=== PATIENT | male | born 1985 | race Caucasian/White ===

== ENCOUNTER 2019-01-08 18:27 | Emergency (ER) | payer MEDICAID ==
[~2019-01-08] VITALS: Ht 182.9 cm; Wt 83.0 kg
--- NOTE | 2019-01-08 19:00 | NUR ---
pt resting on cart, denies needs at this time. blood sent to lab. updated on anticipated wait times.
[2019-01-08 19:05] LABS: BILIRUBIN,URINE NEGATIVE (NEGATIVE); CLARITY,URINE SLIGHTLY CLOUDY; COLOR,URINE YELLOW; GLUCOSE, URINE (UA) NEGATIVE (NEGATIVE); KETONES,URINE NEGATIVE (NEGATIVE); LEUKOCYTE ESTERASE ,URINE NEGATIVE (NEGATIVE); NITRITE,URINE NEGATIVE (NEGATIVE); PH,URINE 7 (5-9); PROTEIN,URINE NEGATIVE (NEGATIVE); UROBILINOGEN,URINE NORMAL (NORMAL)
--- NOTE | 2019-01-08 19:07 | ED General ---
General Chief Complaint: General Problems/Pain Stated Complaint: SHAKY/WEAKNESS Nursing Triage Note: PT AMB TO TRIAGE WITH COMPLAINT OF SHAKINESS AND LEG WEAKENESS. PT STATES STARTED A LITTLE WHILE AGO WHILE HE WAS EATING DINNER AT THE [employer] Nursing Sepsis Screen: No Definite Risk Source of Information: Patient Exam Limitations: No Limitations History of Present Illness Date Seen by Provider: January 08, 2019 Time Seen by Provider: 19:05 Initial Comments To ER by private vehicle with reports of sudden onset shakiness, leg weakness, general weakness. This started about an hour ago while his family were eating dinner at [employer]. He denies any chest pain or shortness of breath. Does state that he has a slight headache on the right side of his head. He's never had this before. Timing/Duration: 1-2 Days Severity: Moderate Associated Systoms: Weakness Allergies and Home Medications Allergies Coded Allergies: Penicillins (Verified Allergy, Unknown, 01/08/19) Patient Home Medication List Home Medication List Reviewed: Yes Review of Systems Review of Systems Constitutional: see HPI EENTM: see HPI Respiratory: no symptoms reported Cardiovascular: no symptoms reported Genitourinary: no symptoms reported Musculoskeletal: see HPI, muscle weakness Skin: no symptoms reported Psychiatric/Neurological: No Symptoms Reported Hematologic/Lymphatic: No Symptoms Reported Immunological/Allergic: no symptoms reported Past Blismmt-Roguky-Tshbph Hx Patient Social History Alcohol Use: Denies Use Recreational Drug Use: No Smoking Status: Former Smoker Type Used: Cigarettes, Smokeless Tobacco Recent Foreign Travel: No Contact w/Someone Who Travel: No Recent Infectious Disease Expo: No Recent Hopitalizations: No Immunizations Up To Date Tetanus Booster (TDap): Unknown PED Vaccines UTD: Yes Seasonal Allergies Seasonal Allergies: No Past Medical History Surgeries: Yes Orthopedic Respiratory: No Cardiac: No Neurological: No Genitourinary: No Gastrointestinal: No Musculoskeletal: No Endocrine: No HEENT: No Cancer: No Psychosocial: Yes Integumentary: No Physical Exam Vital Signs Vital Signs - First Documented 01/08/19 18:33 Pulse 89 Resp 20 B/P (MAP) 151/90 (110) Pulse Ox 98 O2 Delivery Room Air Capillary Refill : Less Than 3 Seconds Height, Weight, BMI Height: 6'0" Weight: 183lbs. oz. 83.031779ge; BMI Method:Stated General Appearance: No Apparent Distress, WD/WN, Anxious Eyes: Bilateral Eye Normal Inspection, Bilateral Eye PERRL, Bilateral Eye EOMI HEENT: PERRL/EOMI, TMs Normal, Normal ENT Inspection Neck: Full Range of Motion, Normal Inspection Respiratory: Normal Breath Sounds, No Accessory Muscle Use, No Respiratory Distress Gastrointestinal: Normal Bowel Sounds, Non Tender, Soft Extremity: Normal Capillary Refill, Normal Inspection Neurologic/Psychiatric: Alert, Oriented x3 Skin: Normal Color, Warm/Dry Progress/Results/Core Measures Suspected Sepsis Recent Fever Within 48 Hours: No Infection Criteria Present: None New/Unexplained Altered Menta: No Sepsis Screen: No Definite Risk SIRS Temperature: Pulse: 89 Respiratory Rate: 20 Laboratory Tests 01/08/19 19:00: White Blood Count 6.1 Blood Pressure 151 /90 Mean: 110 Laboratory Tests 01/08/19 19:00: Creatinine 1.01, Platelet Count 209, Total Bilirubin 0.3 Results/Orders Lab Results Laboratory Tests Test 01/08/19 18:55 01/08/19 19:00 Range/Units Urine Color YELLOW Urine Clarity SLIGHTLY CLOUDY Urine pH 7 5-9 Urine Specific [place] 1.005 L 1.016-1.022 Urine Protein NEGATIVE NEGATIVE Urine Glucose (UA) NEGATIVE NEGATIVE Urine Ketones NEGATIVE NEGATIVE Urine Nitrite NEGATIVE NEGATIVE Urine Bilirubin NEGATIVE NEGATIVE Urine Urobilinogen NORMAL NORMAL MG/DL Urine Leukocyte Esterase NEGATIVE NEGATIVE Urine RBC (Auto) NEGATIVE NEGATIVE Urine RBC RARE /HPF Urine WBC 0-2 /HPF Urine Crystals NONE /LPF Urine Bacteria NEGATIVE /HPF Urine Casts NONE /LPF Urine Mucus NEGATIVE /LPF Urine Culture Indicated NO Urine Opiates Screen NEGATIVE NEGATIVE Urine Oxycodone Screen NEGATIVE NEGATIVE Urine Methadone Screen NEGATIVE NEGATIVE Urine Propoxyphene Screen NEGATIVE NEGATIVE Urine Barbiturates Screen NEGATIVE NEGATIVE Ur Tricyclic Antidepressants Screen NEGATIVE NEGATIVE Urine Phencyclidine Screen NEGATIVE NEGATIVE Urine Amphetamines Screen NEGATIVE NEGATIVE Urine Methamphetamines Screen NEGATIVE NEGATIVE Urine Benzodiazepines Screen NEGATIVE NEGATIVE Urine Cocaine Screen NEGATIVE NEGATIVE Urine Cannabinoids Screen NEGATIVE NEGATIVE White Blood Count 6.1 4.3-11.0 10^3/uL Red Blood Count 5.43 4.35-5.85 10^6/uL Hemoglobin 16.2 13.3-17.7 G/DL Hematocrit 46 40-54 % Mean Corpuscular Volume 84 80-99 FL Mean Corpuscular Hemoglobin 30 25-34 PG Mean Corpuscular Hemoglobin Concent 35 32-36 G/DL Red Cell Distribution Width 13.0 10.0-14.5 % Platelet Count 209 130-400 10^3/uL Mean Platelet Volume 10.3 7.4-10.4 FL Neutrophils (%) (Auto) 49 42-75 % Lymphocytes (%) (Auto) 28 12-44 % Monocytes (%) (Auto) 22 H 0-12 % Eosinophils (%) (Auto) 2 0-10 % Basophils (%) (Auto) 0 0-10 % Neutrophils # (Auto) 3.0 1.8-7.8 X 10^3 Lymphocytes # (Auto) 1.7 1.0-4.0 X 10^3 Monocytes # (Auto) 1.3 H 0.0-1.0 X 10^3 Eosinophils # (Auto) 0.1 0.0-0.3 10^3/uL Basophils # (Auto) 0.0 0.0-0.1 10^3/uL Neutrophils % (Manual) 51 % Lymphocytes % (Manual) 30 % Monocytes % (Manual) 14 % Eosinophils % (Manual) 1 % Basophils % (Manual) 2 % Band Neutrophils 0 % Reactive Lymphocytes 2 % Blood Morphology Comment NORMAL Sodium Level 142 135-145 MMOL/L Potassium Level 3.7 3.6-5.0 MMOL/L Chloride Level 102 98-107 MMOL/L Carbon Dioxide Level 25 21-32 MMOL/L Anion Gap 15 H 5-14 MMOL/L Blood Urea Nitrogen 11 7-18 MG/DL Creatinine 1.01 0.60-1.30 MG/DL Estimat Glomerular Filtration Rate > 60 BUN/Creatinine Ratio 11 Glucose Level 109 H 70-105 MG/DL Calcium Level 10.5 H 8.5-10.1 MG/DL Corrected Calcium 8.5-10.1 MG/DL Total Bilirubin 0.3 0.1-1.0 MG/DL Aspartate Amino Transf (AST/SGOT) 25 5-34 U/L Alanine Aminotransferase (ALT/SGPT) 34 0-55 U/L Alkaline Phosphatase 77 40-136 U/L Total Creatine Kinase 210 H 30-200 U/L Myoglobin 70.0 10.0-92.0 NG/ML Total Protein 8.1 6.4-8.2 GM/DL Albumin 4.8 H 3.2-4.5 GM/DL Thyroid Stimulating Hormone (TSH) 0.64 0.35-4.94 UIU/ML Free Thyroxine 0.97 0.70-1.48 NG/DL My Orders Orders - DYLAN WHELAN APRN Cbc With Automated Diff (01/08/19 18:41) Comprehensive Metabolic Panel (01/08/19 18:41) Creatine Kinase (01/08/19 18:41) Myoglobin Serum (01/08/19 18:41) Ua Culture If Indicated (01/08/19 18:41) Drug Screen Stat (Urine) (01/08/19 18:41) Ed Iv/Invasive Line Start (01/08/19 18:41) Thyroid Stimulating Hormone (01/08/19 18:44) Free T4 (Free Thyroxine) (01/08/19 18:44) Lorazepam Injection (Ativan Injection) (01/08/19 19:15) Manual Differential (01/08/19 19:00) Medications Given in ED Current Medications Medications Dose Ordered Sig/Valentina Route Start Time Stop Time Status Last Admin Dose Admin Lorazepam 0.5 mg ONCE PRN IVP 01/08/19 19:15 01/08/19 19:10 0.5 MG Vital Signs/I&O 01/08/19 18:33 Pulse 89 Resp 20 B/P (MAP) 151/90 (110) Pulse Ox 98 O2 Delivery Room Air Capillary Refill : Less Than 3 Seconds Blood Pressure Mean: 110 Departure Impression Primary Impression: General weakness Additional Impression: Shakiness Disposition: 01 HOME, SELF-CARE Condition: Stable Departure-Patient Inst. Decision time for Depature: 20:08 Referrals: RAVINDRA PERRIN MD (PCP/Family) Primary Care Physician Patient Instructions: Generalized Weakness (DC) Add. Discharge Instructions: 1. Follow-up with your doctor later this week 2. Return to ER for any concerns. All discharge instructions reviewed with patient and/or family. Voiced understanding. DYLAN WHELAN APRN January 08, 2019 19:07
[2019-01-08 19:09] LABS: BASOPHILS % (AUTO) 0 % (0-10); EOSINOPHILS # (AUTO) 0.1 10^3/uL (0.0-0.3); EOSINOPHILS % (AUTO) 2 % (0-10); HEMATOCRIT 46 % (40-54); HEMOGLOBIN 16.2 G/DL (13.3-17.7); LYMPHOCYTES # (AUTO) 1.7 X 10^3 (1.0-4.0); LYMPHOCYTES % (AUTO) 28 % (12-44); MEAN CORPUSCULAR HEMOGLOBIN 30 PG (25-34); MEAN CORPUSCULAR HGB CONC 35 G/DL (32-36); MEAN CORPUSCULAR VOLUME 84 FL (80-99); MEAN PLATELET VOLUME 10.3 FL (7.4-10.4); MONOCYTES # (AUTO) 1.3 X 10^3 (0.0-1.0); MONOCYTES % (AUTO) 22 % (0-12); NEUTROPHILS % (AUTO) 49 % (42-75); PLATELET COUNT 209 10^3/uL (130-400); WHITE BLOOD COUNT 6.1 10^3/uL (4.3-11.0)
[2019-01-08 19:14] LABS: BACTERIA,URINE NEGATIVE /HPF; RBC,URINE RARE /HPF; WBC,URINE 0-2 /HPF
[2019-01-08] MEDS ORDERED: LORazepam INJ 2 MG/ML (ATIVAN) VIAL IVP PRN (19:15)
[2019-01-08 19:19] LABS: AMPHETAMINE SCREEN, URINE NEGATIVE (NEGATIVE); BARBITURATE SCREEN URINE NEGATIVE (NEGATIVE); BENZODIAZEPINES SCREEN URINE NEGATIVE (NEGATIVE); CANNABINOID SCREEN, URINE NEGATIVE (NEGATIVE); COCAINE SCREEN URINE NEGATIVE (NEGATIVE); METHADONE STAT NEGATIVE (NEGATIVE); METHAMPHETAMINE SCREEN URINE S NEGATIVE (NEGATIVE); OPIATE SCREEN URINE NEGATIVE (NEGATIVE); OXYCODONE STAT NEGATIVE (NEGATIVE); PROPOXYPHENE STAT NEGATIVE (NEGATIVE); TRICYCLIC ANTIDEPRESSANTS SCRE NEGATIVE (NEGATIVE)
[2019-01-08 19:27] LABS: BAND NEUTROPHILS 0 %; BASOPHILS % (MANUAL) 2 %; EOSINOPHILS % (MANUAL) 1 %; LYMPHOCYTES % (MANUAL) 30 %; MONOCYTES % (MANUAL) 14 %; NEUTROPHILS % (MANUAL) 51 %; REACTIVE LYMPHOCYTES 2 %
[2019-01-08 19:28] LABS: ALBUMIN 4.8 GM/DL (3.2-4.5); ALKALINE PHOSPHATASE 77 U/L (40-136); BILIRUBIN,TOTAL 0.3 MG/DL (0.1-1.0); BUN/CREATININE RATIO 11; CALCIUM 10.5 MG/DL (8.5-10.1); CARBON DIOXIDE 25 MMOL/L (21-32); CHLORIDE 102 MMOL/L (98-107); CREATINE KINASE 210 U/L (30-200); CREATININE SERUM 1.01 MG/DL (0.60-1.30); GFR ESTIMATED > 60; GLUCOSE 109 MG/DL (70-105); POTASSIUM 3.7 MMOL/L (3.6-5.0); RBC MORPH NORMAL; SODIUM 142 MMOL/L (135-145); TOTAL PROTEIN 8.1 GM/DL (6.4-8.2)
[2019-01-08 19:49] LABS: FREE T4 (FREE THYROXINE) 0.97 NG/DL (0.70-1.48)
[2019-01-08 20:02] LABS: ALANINE AMINOTRANSFERASE 34 U/L (0-55)
[2019-01-08 20:15] VITALS: BP 122/83
== END 2019-01-08 20:15 | disposition home or self-care (01) ==
LOC: EDUNIT# 18:27 → ER 18:28
DX: M62.81 Muscle weakness (generalized) (principal); R25.9 Unspecified abnormal involuntary movements; Z88.0 Allergy status to penicillin; Z87.891 Personal history of nicotine dependence
CPT/HCPCS: 36415; 80053; 80306; 81000; 82550; 83874; 84439; 84443; 85007; 85027

== ENCOUNTER → 2019-04-17 | Outpatient (CLI) | payer MEDICAID | LOC: CARD 11:23 | PROVIDERS: ATTEND Nurse Practitioner Family | DX: R07.9 Chest pain, unspecified (principal) | CPT/HCPCS: 93225; 93226 ==

== ENCOUNTER → 2019-04-24 | Outpatient (CLI) | payer MEDICAID ==
[~2019-04-24] MED LIST: CATHETER FLUSH 10 ML SYR IV PRN
[2019-04-24 13:32] VITALS: BP 103/71
[2019-04-24 13:54] VITALS: BP 123/75
[2019-04-24 13:56] VITALS: BP 120/76
--- NOTE | 2019-04-27 13:06 | STRESS TEST ---
DATE OF SERVICE: 04/24/2019 RESTING AND POST EXERCISE TECHNETIUM-99M TETROFOSMIN SPECT CT IMAGING Baseline images were carried out after injection of 10.7 mCi of technetium-99m Tetrofosmin. This was followed by exercise on a treadmill. Keon protocol was employed. The patient exercised for a total of 12 minutes and 12 seconds in the Keon protocol. Heart rate response to exercise was normal. Blood pressure response to exercise was somewhat hypertensive. There did not appear to be significant ST segment deviation with exercise. Test was stopped on account of fatigue. The patient received 30.5 mCi of technetium-99m Tetrofosmin after he had attained more than 85% of maximum predicted heart rate and the exercise was continued for another minute. Review of images at rest and following stress does not indicate significant perfusion defects consistent with significant myocardial ischemia or infarction. Gated images show normal global left ventricular systolic function with normal regional wall motion. Left ventricular ejection fraction is calculated to be 53%. Left ventricular end diastolic volume is 73 mL. TID is absent (0.99). CONCLUSIONS: 1. No evidence of any significant myocardial ischemia or infarction on this study. 2. Normal regional wall motion. 3. Normal global left ventricular systolic function with a calculated ejection fraction of 53%. Job ID: [id number] DocumentID: [id number] Dictated Date: 04/27/2019 10:18:51 Quarter Backer Date: 04/27/2019 13:05:41 Dictated By: JESSE TOLEDO MD, MA, FACP, FACC,
== END ==
LOC: CARD 11:52
PROVIDERS: ATTEND Internal Medicine Cardiovascular Disease
DX: I34.0 Nonrheumatic mitral (valve) insufficiency (principal)
CPT/HCPCS: 78452; 93017; 93306

== ENCOUNTER 2020-06-10 13:53 | Emergency (ER) | payer MEDICAID ==
[~2020-06-10] VITALS: Ht 182 cm; Wt 84.0 kg
--- NOTE | 2020-06-10 16:26 | ED EENT ---
History of Present Illness General Chief Complaint: Dental Problems/Pain Stated Complaint: MOUTH ABSCESS Nursing Triage Note: PT HAS RT LOWER DENTAL PAIN AND SWELLING, WAS GIVEN ABX YESTERDAY AND "MAGIC MOUTHWASH" BUT STILL IN A LOT OF PAIN. PAIN FOR A COUPLE DAYS Source: patient Exam Limitations: no limitations History of Present Illness Date Seen by Provider: Jun 10, 2020 Time Seen by Provider: 16:14 Initial Comments Pain swelling tenderness erythema on the right jaw associated with a bad tooth for the past 3-4 days. He started clindamycin yesterday from his doctor however is getting worse. No drainage or discharge in the mouth. No difficulty swallowing fluids or breathing. Allergies and Home Medications Allergies Coded Allergies: Penicillins (Verified Allergy, Unknown, 01/08/19) Patient Home Medication List Home Medication List Reviewed: Yes Review of Systems Review of Systems Constitutional: No chills, No diaphoresis Eyes: Denies Blindness, Denies Blurred Vision Ears: Denies Dizziness, Denies Pain Nose: denies congestion, denies pain Mouth: see HPI, pain, swelling Throat: denies pain, denies swelling Respiratory: No cough, No stridor, No wheezing All Other Systems Reviewed Negative Unless Noted: Yes Past Jmcuhhm-Ztgeaj-Mjlqip Hx Patient Social History Alcohol Use: Denies Use Recreational Drug Use: No Type Used: Cigarettes, Smokeless Tobacco Recent Foreign Travel: No Contact w/Someone Who Travel: No Recent Infectious Disease Expo: No Recent Hopitalizations: No Immunizations Up To Date Tetanus Booster (TDap): Unknown PED Vaccines UTD: Yes Seasonal Allergies Seasonal Allergies: No Past Medical History Surgeries: Yes (RT ARM) Orthopedic Respiratory: No Cardiac: Yes Valvular Heart Disease Neurological: No Genitourinary: No Gastrointestinal: No Musculoskeletal: No Endocrine: No HEENT: No Cancer: No Psychosocial: Yes Depression Integumentary: No Physical Exam Vital Signs Vital Signs - First Documented 06/10/20 16:11 Temp 37.2 Pulse 99 Resp 20 B/P (MAP) 173/100 (124) Pulse Ox 97 O2 Delivery Room Air Height, Weight, BMI Height: 6'0" Weight: 183lbs. oz. 83.219597na; 25.00 BMI Method:Stated General Appearance: WD/WN, mild distress Eyes: bilateral eye normal inspection, bilateral eye PERRL, bilateral eye EOMI Ears: bilateral ear auricle normal, bilateral ear canal normal Nose: normal inspection; No active bleeding Mouth/Throat: other (ball-sized tender nodule or mass without fluctuance associated with the right side mandibular molars.) Neck: full range of motion, supple Cardiovascular: normal peripheral pulses, regular rate, rhythm Neurologic/Psychiatric: alert, normal mood/affect, oriented x 3 Skin: normal color, warm/dry Procedures/Interventions Progress 3. They are using a 50/50 mixture of half percent bupivacaine and 2% lidocaine without epinephrine we found our landmarks and placed the 25-gauge 1-1/2 inch needle directly at the level of the alveolar nerve. Injected about 1-1/2 cc of the mixture after aspirating no blood and patient had immediate sensation change. When the patient was ascertained to be appropriately anesthetized 11 blade scalpel was used to rafita the mass which gained about 15 cc of sanguinous thin material. Progress/Results/Core Measures Results/Orders My Orders Orders - CELESTINO GARCIA Bupivacaine 0.5% Injection (Sensorcaine (06/10/20 16:30) Medications Given in ED Current Medications Medications Dose Ordered Sig/Valentina Route Start Time Stop Time Status Last Admin Dose Admin Bupivacaine HCl 30 ml ONCE ONCE INJ 06/10/20 16:30 06/10/20 16:31 DC 06/10/20 16:27 30 ML Vital Signs/I&O 06/10/20 06/10/20 16:11 16:27 Temp 37.2 37.2 Pulse 99 Resp 20 B/P (MAP) 173/100 (124) Pulse Ox 97 O2 Delivery Room Air Blood Pressure Mean: 124 Progress Progress Note : Time: 16:25 Progress Note Plan to do an inferior alveolar nerve block and Rafita the abscess. Gram of Rocephin Departure Impression Primary Impression: Dental abscess Disposition: HOME, SELF-CARE Condition: Stable Departure-Patient Inst. Decision time for Depature: 16:37 Referrals: RAVINDRA PERRIN MD (PCP/Family) Primary Care Physician Patient Instructions: Tooth Abscess (DC) Add. Discharge Instructions: Continue taking the antibiotics as prescribed. Follow-up with a dentist. Return to the ER should you have difficulty breathing or swallowing fluids. Tylenol 1000 mg every 8 hours as necessary for pain. Ibuprofen 800 mg every 8 hours as necessary for pain. All discharge instructions reviewed with patient and/or family. Voiced understanding. CELESTINO GARCIA Jun 10, 2020 16:26
[2020-06-10] MEDS ORDERED: BUPIVACAINE 0.5% 30 ML (SENSORCAINE) VIAL INJ ONE (16:30)
[2020-06-10] MEDS ORDERED: cefTRIAXone 1,000 MG/2.86 ml vial (IM ONLY) IM ONE (16:45)
[2020-06-10] MEDS ORDERED: LIDOCAINE 1% INJ 20 ML 20 ML VIAL INJ ONE (16:45)
[2020-06-10 17:33] VITALS: BP 154/92
== END 2020-06-10 17:33 | disposition home or self-care (01) ==
LOC: EDUNIT# 13:53 → ER 13:55
DX: K04.7 Periapical abscess without sinus (principal); Z88.0 Allergy status to penicillin
CPT/HCPCS: 99284

== ENCOUNTER 2021-09-26 17:21 | Emergency (ER) | payer MEDICAID ==
[~2021-09-26] VITALS: Ht 183 cm; Wt 86.6 kg
[2021-09-26 17:25] VITALS: BP 128/83
--- NOTE | 2021-09-26 17:36 | ED EENT ---
History of Present Illness General Stated Complaint: FEVER/BODYACHES/COUGH/SORE THROAT Source: patient Exam Limitations: no limitations History of Present Illness Date Seen by Provider: Sep 26, 2021 Time Seen by Provider: 17:33 Initial Comments Patient is a 36-year-old male who presents to the ED with flulike symptoms. Reports by aches, fatigue and generalized weakness since this previous Tuesday. Tested positive for strep on Tuesday with negative Covid. Patient was placed on azithromycin. Had initial sore throat but that has improved. Continue bodyaches, fatigue feeling feverish with joint pain. Exposure to his family member who tested positive. Currently on atenolol. History of abnormal heart valve. Patient denies any current chest pain feeling short of breath. Vital signs stable. Denies taking any anti-inflammatories at home. Denies headache, visual changes, focal neuro deficit, lower abdominal pain with dysuria, materia. Patient has not had his Covid vaccine. Allergies and Home Medications Allergies Coded Allergies: Penicillins (Verified Allergy, Unknown, 01/08/19) Patient Home Medication List Home Medication List Reviewed: Yes Review of Systems Review of Systems Constitutional: chills, fever, malaise, weakness Eyes: Denies Blindness, Denies Blurred Vision, Denies Pain Ears: Denies Dizziness, Denies Bloody Discharge Nose: denies clots; congestion; denies epistaxis Mouth: denies clots, denies loose teeth; pain; denies swelling Throat: pain; denies swelling, denies discharge, denies neck stiffness, denies hoarse, denies muffled Respiratory: cough; No phlegm, No short of breath Cardiovascular: No chest pain Gastrointestinal: No abdominal pain, No diarrhea, No dysphagia, No nausea, No vomiting Musculoskeletal: No back pain; joint pain Skin: No change in color, No change in hair/nails All Other Systems Reviewed Negative Unless Noted: Yes Past Jxhcmxo-Qcyavs-Pejjjo Hx Immunizations Up To Date Tetanus Booster (TDap): Unknown PED Vaccines UTD: Yes Seasonal Allergies Seasonal Allergies: No Past Medical History Surgeries: Yes (RT ARM) Orthopedic Respiratory: No Cardiac: Yes Valvular Heart Disease Neurological: No Genitourinary: No Gastrointestinal: No Musculoskeletal: No Endocrine: No HEENT: No Cancer: No Psychosocial: Yes Depression Integumentary: No Physical Exam Vital Signs Vital Signs - First Documented 09/26/21 17:25 Temp 37.9 Pulse 100 Resp 20 B/P (MAP) 128/83 (98) O2 Delivery Room Air Height, Weight, BMI Height: 6'0" Weight: 183lbs. oz. 83.524846ss; 25.00 BMI Method:Stated General Appearance: WD/WN, no apparent distress Eyes: bilateral eye normal inspection, bilateral eye PERRL, bilateral eye EOMI Ears: bilateral ear auricle normal, bilateral ear canal normal, bilateral ear TM normal Nose: normal inspection Mouth/Throat: normal mouth inspection; No pharynx swelling, No pharynx tenderness, No tonsillar swelling, No uvula swelling Neck: non-tender, full range of motion Cardiovascular: regular rate, rhythm, no edema, no gallop, no JVD Respiratory: chest non-tender, lungs clear, normal breath sounds, no respiratory distress, no accessory muscle use Gastrointestinal: normal bowel sounds, non tender, soft, no organomegaly Neurologic/Psychiatric: transit mechanic II-XII nml as tested, no motor/sensory deficits, alert, normal mood/affect, oriented x 3 Skin: normal color, warm/dry Progress/Results/Core Measures Results/Orders Lab Results Laboratory Tests Test 09/26/21 17:29 Range/Units Influenza Type A Antigen NEGATIVE NEGATIVE Influenza Type B Antigen NEGATIVE NEGATIVE My Orders Orders - MAGDALENA KYLE Coronavirus Sars-Cov-2 So 2019 (09/26/21 17:37) Influenza A & B Antigens (09/26/21 17:29) Vital Signs/I&O 09/26/21 17:25 Temp 37.9 Pulse 100 Resp 20 B/P (MAP) 128/83 (98) O2 Delivery Room Air Departure Communication (Admissions) Patient recently recovering from strep throat. Positive throat swab on Tuesday. Continue flulike symptoms of bodyaches, fatigue and generalized weakness. Sore throat has improved. Patient lung sounds clear bilateral. No abdominal tenderness. Oropharynx without swelling, exudate. Nasal mucosal edematous. Bilateral TMs clear. Slightly tachycardic. Concerning with flulike symptoms. No current chest pain or shortness of breath. Mild cough. Lung sounds clear bilateral. Covid and influenza pending. Quarantine at home until results. Provided work note if positive. Discussed conservative treatment at home. If any worsening symptoms return back to ED for further evaluation. Offered Tylenol or ibuprofen. Patient refused. Low-grade temperature 100.2. He states he will take medication when he gets home. Impression Primary Impression: Viral syndrome Disposition: HOME, SELF-CARE Condition: Stable Departure-Patient Inst. Decision time for Depature: 17:35 Referrals: RAVINDRA PERRIN MD (PCP/Family) Primary Care Physician Patient Instructions: Viral Syndrome (DC) Add. Discharge Instructions: Need to take ibuprofen 600 to 800 mg every 6-8 hours at home. Quarantine at home if positive until next Tuesday. Work/School Note: Work Release Form Date Seen in the Emergency Department: Sep 26, 2021 Return to Work: Oct 02, 2021 MAGDALENA KYLE Sep 26, 2021 17:36
== END 2021-09-26 17:58 | disposition home or self-care (01) ==
LOC: EDUNIT# 17:21 → ER 17:22
DX: U07.1 COVID-19 (principal)
CPT/HCPCS: 87635; 87804; 99283

== ENCOUNTER 2021-09-28 13:28 | Emergency (ER) | payer MEDICAID ==
[~2021-09-28] VITALS: Ht 183 cm; Wt 86.6 kg
[2021-09-28 13:45] VITALS: BP 118/71
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
[2021-09-28] MEDS ORDERED: HYDROcodone/APAP 5 MG/325 MG (LORTAB) TAB PO ONE (14:00)
[2021-09-28] MEDS ORDERED: IBUPROFEN 600 MG (MOTRIN) TAB PO ONE (14:00)
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
--- NOTE | 2021-09-28 14:33 | Diagnostic Imaging Report ---
INDICATION: Left lower leg pain AP and lateral views of the left tibia-fibula show no fracture, dislocation or other acute abnormalities. IMPRESSION: Negative left tibia and fibula. Dictated by: Dictated on workstation # [id number]
== END 2021-09-28 14:43 | disposition home or self-care (01) ==
LOC: EDUNIT# 13:28 → ER 13:34
DX: S91.012A Laceration without foreign body, left ankle, initial encounter (principal); M79.672 Pain in left foot; U07.1 COVID-19; F17.210 Nicotine dependence, cigarettes, uncomplicated; Z73.0 Burn-out; V13.2XXA Unspecified pedal cyclist injured in collision with car, pick-up truck or van in nontraffic accident, initial encounter
CPT/HCPCS: 73590; 73630

== ENCOUNTER 2021-11-28 18:11 | Emergency (ER) | payer MEDICAID ==
[~2021-11-28] VITALS: Ht 182.8 cm; Wt 86.6 kg
[2021-11-28] MEDS ORDERED: IBUPROFEN 800 MG (MOTRIN) TAB PO STA (18:33)
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
[2021-11-28 19:21] VITALS: BP 119/80
== END 2021-11-28 19:22 | disposition home or self-care (01) ==
LOC: EDUNIT# 18:11 → ER 18:12
DX: S83.411A Sprain of medial collateral ligament of right knee, initial encounter (principal); F17.210 Nicotine dependence, cigarettes, uncomplicated; W22.8XXA Striking against or struck by other objects, initial encounter; Y93.72 Activity, wrestling
CPT/HCPCS: 73562

== ENCOUNTER → 2021-12-21 | Outpatient (CLI) | payer MEDICAID | LOC: CARD 13:30 | PROVIDERS: ATTEND Internal Medicine Cardiovascular Disease | DX: R00.2 Palpitations (principal); R06.09 Other forms of dyspnea | CPT/HCPCS: 93306 ==

== ENCOUNTER → 2021-12-22 | Outpatient (CLI) | payer MEDICAID ==
[~2021-12-22] MED LIST changes: -CATHETER FLUSH 10 ML SYR IV PRN; +CATHETER FLUSH 10 ML SYR IVP PRN; +REGADENOSON 0.4 MG/5 ML SYR (LEXISCAN) IV ONE
[2021-12-22 09:19] VITALS: BP 111/72
--- NOTE | 2021-12-23 13:33 | STRESS TEST ---
DATE OF SERVICE: 12/22/2021 RESTING AND POST REGADENOSON TECHNETIUM-99M TETROFOSMIN SPECT CT IMAGING ORDERING PHYSICIAN: Dr. Wagner. PRIMARY PHYSICIAN: Dr. Alonzo. CLINICAL DIAGNOSIS: Chest discomfort. Baseline images were carried out after injection of 9.11 mCi of technetium-99m Tetrofosmin. This was followed by 0.4 mg Regadenoson and 29.1 mCi of technetium-99m Tetrofosmin for stress imaging. The electrocardiogram showed sinus rhythm at baseline and it did not change significantly with the Regadenoson infusion. The patient noted mild chest discomfort following Regadenoson infusion, which resolved in a few minutes. Review of images at rest and following stress does not indicate any significant perfusion defects consistent with myocardial ischemia or infarction. Gated images show normal global left ventricular systolic function with normal regional wall motion. Left ventricular ejection fraction is calculated to be 58%. CONCLUSIONS: 1. No evidence of significant myocardial ischemia or infarction on this study. 2. Normal regional wall motion. 3. Normal global left ventricular systolic function with a calculated ejection fraction of 58%. Job ID: [id number] DocumentID: [id number] Dictated Date: 12/23/2021 12:54:46 Senior Data Warehouse Developer Date: 12/23/2021 13:32:35 Dictated By: JESSE WAGNER MD, MA, FACP, FACC,
== END ==
LOC: CARD 12-18 08:15
PROVIDERS: ATTEND Internal Medicine Cardiovascular Disease
DX: R07.89 Other chest pain (principal); R00.2 Palpitations
CPT/HCPCS: 78452; 93017; 93225; 93226; A9502

== ENCOUNTER 2022-02-10 21:10 | Emergency (ER) | payer MEDICAID ==
[~2022-02-10] VITALS: Ht 182.8 cm; Wt 86.1 kg
[2022-02-10] MEDS ORDERED: ASPIRIN 81 MG CHEW (CHILDREN'S ASA) PO ONE (21:30)
[2022-02-10] MEDS ORDERED: NITROGLYCERIN 0.4 MG SL TABS BTL 25'S SL PRN (21:30)
[2022-02-10 21:39] LABS: BASOPHILS % (AUTO) 1 % (0-10); EOSINOPHILS # (AUTO) 0.3 10^3/uL (0.0-0.3); EOSINOPHILS % (AUTO) 4 % (0-10); HEMATOCRIT 43 % (40-54); HEMOGLOBIN 14.7 g/dL (13.3-17.7); LYMPHOCYTES # (AUTO) 2.5 10^3/uL (1.0-4.0); LYMPHOCYTES % (AUTO) 33 % (12-44); MEAN CORPUSCULAR HEMOGLOBIN 30 pg (25-34); MEAN CORPUSCULAR HGB CONC 34 g/dL (32-36); MEAN CORPUSCULAR VOLUME 88 fL (80-99); MEAN PLATELET VOLUME 10.8 fL (9.0-12.2); MONOCYTES # (AUTO) 1.1 10^3/uL (0.0-1.0); MONOCYTES % (AUTO) 14 % (0-12); NEUTROPHILS # (AUTO) 3.9 10^3/uL (1.8-7.8); NEUTROPHILS % (AUTO) 50 % (42-75); PLATELET COUNT 222 10^3/uL (130-400); WHITE BLOOD COUNT 7.8 10^3/uL (4.3-11.0)
[2022-02-10 21:44] LABS: ALBUMIN 4.2 GM/DL (3.2-4.5); CHLORIDE 105 MMOL/L (98-107); SODIUM 137 MMOL/L (135-145)
[2022-02-10 21:46] LABS: AMYLASE 44 U/L (25-125)
[2022-02-10 21:47] LABS: GLUCOSE 94 MG/DL (70-105); TOTAL PROTEIN 7.3 GM/DL (6.4-8.2)
[2022-02-10 21:48] LABS: BILIRUBIN,TOTAL 0.3 MG/DL (0.1-1.0); CARBON DIOXIDE 23 MMOL/L (21-32); PROTHROMBIN TIME PATIENT 13.2 SEC (12.2-14.7)
[2022-02-10 21:50] LABS: ALKALINE PHOSPHATASE 78 U/L (40-136); CREATININE SERUM 1.01 MG/DL (0.60-1.30); GFR ESTIMATED 98
[2022-02-10 21:51] LABS: BUN/CREATININE RATIO 20
[2022-02-10 21:53] LABS: ALANINE AMINOTRANSFERASE 21 U/L (0-55); MAGNESIUM 2.1 MG/DL (1.6-2.4)
[2022-02-10 21:54] LABS: CREATINE KINASE 223 U/L (30-200); LIPASE 23 U/L (8-78)
[2022-02-10 21:58] LABS: ERYTHROCYTE SEDIMENTATION RATE 8 MM/HR (0-15)
[2022-02-10 22:01] LABS: CREATINE KINASE MB 2.5 NG/ML (<6.6)
--- NOTE | 2022-02-10 22:07 | Diagnostic Imaging Report ---
EXAM: Chest 1 view, AP/PA only INDICATION: Chest pain. COMPARISON: None. FINDINGS: Normal heart size and pulmonary vascularity. No dense consolidation, pleural effusion or pneumothorax. No acute osseous finding. IMPRESSION: Negative chest. Dictated by: Dictated on workstation # [id number]
[2022-02-10] MEDS ORDERED: KETOROLAC 30 MG/ML VIAL IVP ONE (22:15)
[2022-02-10 22:20] LABS: BILIRUBIN,URINE NEGATIVE (NEGATIVE); CLARITY,URINE CLEAR; COLOR,URINE YELLOW; GLUCOSE, URINE (UA) NEGATIVE (NEGATIVE); KETONES,URINE NEGATIVE (NEGATIVE); LEUKOCYTE ESTERASE ,URINE NEGATIVE (NEGATIVE); NITRITE,URINE NEGATIVE (NEGATIVE); PROTEIN,URINE NEGATIVE (NEGATIVE)
[2022-02-10 22:27] LABS: BACTERIA,URINE FEW /HPF; RBC,URINE 0-2 /HPF; WBC,URINE RARE /HPF
[2022-02-10 22:32] LABS: AMPHETAMINE SCREEN, URINE NEGATIVE (NEGATIVE); BARBITURATE SCREEN URINE NEGATIVE (NEGATIVE); BENZODIAZEPINES SCREEN URINE NEGATIVE (NEGATIVE); CANNABINOID SCREEN, URINE NEGATIVE (NEGATIVE); COCAINE SCREEN URINE NEGATIVE (NEGATIVE); METHADONE STAT NEGATIVE (NEGATIVE); OPIATE SCREEN URINE NEGATIVE (NEGATIVE); OXYCODONE STAT NEGATIVE (NEGATIVE); PROPOXYPHENE STAT NEGATIVE (NEGATIVE); TRICYCLIC ANTIDEPRESSANTS SCRE NEGATIVE (NEGATIVE)
--- NOTE | 2022-02-11 00:58 | ED Chest Pain ---
General Chief Complaint: Chest Pain Stated Complaint: CHEST PAIN Source: patient History of Present Illness Date Seen by Provider: Feb 10, 2022 Time Seen by Provider: 21:27 Initial Comments PT ARRIVES VIA POV FROM HOME C/O MID CHEST PAIN SINCE 1830 TONIGHT PAIN BEGAN WHILE SITTING PAIN COMES AND GOES, NOTHING WORSENS OR IMPROVES PAIN NO RADIATION OF PAIN SLIGHT SHORTNESS OF BREATH NO COUGH NO FEVER NO SWEATS NO SWELLING OF LEGS/FEET NO PALPITATIONS, DIZZINESS OR SYNCOPE. Allergies and Home Medications Allergies Coded Allergies: Penicillins (Verified Allergy, Unknown, 01/08/19) Past Pyqetkg-Xgdwkp-Dkdlvp Hx Immunizations Up To Date Tetanus Booster (TDap): Unknown PED Vaccines UTD: Yes First/Initial COVID19 Vaccinat: NONE Second COVID19 Vaccination Christian: NONE Third COVID19 Vaccination Date: NONE Seasonal Allergies Seasonal Allergies: No Past Medical History Surgeries: Yes (RT ARM) Orthopedic Respiratory: No Cardiac: Yes Valvular Heart Disease Neurological: No Genitourinary: No Gastrointestinal: No Musculoskeletal: No Endocrine: No HEENT: No Cancer: No Psychosocial: Yes Depression Integumentary: No Physical Exam Vital Signs Vital Signs - First Documented 02/10/22 21:21 Temp 37.1 Pulse 53 Resp 12 B/P (MAP) 128/81 (97) Pulse Ox 98 O2 Delivery Room Air Capillary Refill : Height, Weight, BMI Height: 6'0" Weight: 183lbs. oz. 83.577301te; 25.00 BMI Method:Stated Progress/Results/Core Measures Results/Orders Lab Results Laboratory Tests Test 02/10/22 21:30 02/10/22 22:05 02/10/22 23:48 Range/Units White Blood Count 7.8 4.3-11.0 10^3/uL Red Blood Count 4.89 4.30-5.52 10^6/uL Hemoglobin 14.7 13.3-17.7 g/dL Hematocrit 43 40-54 % Mean Corpuscular Volume 88 80-99 fL Mean Corpuscular Hemoglobin 30 25-34 pg Mean Corpuscular Hemoglobin Concent 34 32-36 g/dL Red Cell Distribution Width 12.0 10.0-14.5 % Platelet Count 222 130-400 10^3/uL Mean Platelet Volume 10.8 9.0-12.2 fL Immature Granulocyte % (Auto) 0 % Neutrophils (%) (Auto) 50 42-75 % Lymphocytes (%) (Auto) 33 12-44 % Monocytes (%) (Auto) 14 H 0-12 % Eosinophils (%) (Auto) 4 0-10 % Basophils (%) (Auto) 1 0-10 % Neutrophils # (Auto) 3.9 1.8-7.8 10^3/uL Lymphocytes # (Auto) 2.5 1.0-4.0 10^3/uL Monocytes # (Auto) 1.1 H 0.0-1.0 10^3/uL Eosinophils # (Auto) 0.3 0.0-0.3 10^3/uL Basophils # (Auto) 0.0 0.0-0.1 10^3/uL Immature Granulocyte # (Auto) 0.0 0.0-0.1 10^3/uL Erythrocyte Sedimentation Rate 8 0-15 MM/HR Prothrombin Time 13.2 12.2-14.7 SEC INR Comment 1.0 0.8-1.4 Activated Partial Thromboplast Time 33 24-35 SEC Sodium Level 137 135-145 MMOL/L Potassium Level 4.0 3.6-5.0 MMOL/L Chloride Level 105 98-107 MMOL/L Carbon Dioxide Level 23 21-32 MMOL/L Anion Gap 9 5-14 MMOL/L Blood Urea Nitrogen 20 H 7-18 MG/DL Creatinine 1.01 0.60-1.30 MG/DL Estimat Glomerular Filtration Rate 98 BUN/Creatinine Ratio 20 Glucose Level 94 70-105 MG/DL Calcium Level 9.0 8.5-10.1 MG/DL Corrected Calcium 8.8 8.5-10.1 MG/DL Magnesium Level 2.1 1.6-2.4 MG/DL Total Bilirubin 0.3 0.1-1.0 MG/DL Aspartate Amino Transf (AST/SGOT) 23 5-34 U/L Alanine Aminotransferase (ALT/SGPT) 21 0-55 U/L Alkaline Phosphatase 78 40-136 U/L Total Creatine Kinase 223 H 30-200 U/L Creatine Kinase MB 2.5 <6.6 NG/ML Myoglobin 26.8 10.0-92.0 NG/ML Troponin I < 0.028 < 0.028 <0.028 NG/ML C-Reactive Protein High Sensitivity 0.34 0.00-0.50 MG/DL B-Type Natriuretic Peptide 49.2 <100.0 PG/ML Total Protein 7.3 6.4-8.2 GM/DL Albumin 4.2 3.2-4.5 GM/DL Amylase Level 44 25-125 U/L Lipase 23 8-78 U/L Urine Color YELLOW Urine Clarity CLEAR Urine pH 7.0 5-9 Urine Specific Delano 1.025 H 1.016-1.022 Urine Protein NEGATIVE NEGATIVE Urine Glucose (UA) NEGATIVE NEGATIVE Urine Ketones NEGATIVE NEGATIVE Urine Nitrite NEGATIVE NEGATIVE Urine Bilirubin NEGATIVE NEGATIVE Urine Urobilinogen 1.0 < = 1.0 MG/DL Urine Leukocyte Esterase NEGATIVE NEGATIVE Urine RBC (Auto) NEGATIVE NEGATIVE Urine RBC 0-2 /HPF Urine WBC RARE /HPF Urine Squamous Epithelial Cells NONE /HPF Urine Renal Epithelial Cells NONE /HPF Urine Crystals NONE /LPF Urine Bacteria FEW H /HPF Urine Casts NONE /LPF Urine Mucus SMALL H /LPF Urine Culture Indicated NO Urine Opiates Screen NEGATIVE NEGATIVE Urine Oxycodone Screen NEGATIVE NEGATIVE Urine Methadone Screen NEGATIVE NEGATIVE Urine Propoxyphene Screen NEGATIVE NEGATIVE Urine Barbiturates Screen NEGATIVE NEGATIVE Ur Tricyclic Antidepressants Screen NEGATIVE NEGATIVE Urine Phencyclidine Screen NEGATIVE NEGATIVE Urine Amphetamines Screen NEGATIVE NEGATIVE Urine Methamphetamines Screen NEGATIVE NEGATIVE Urine Benzodiazepines Screen NEGATIVE NEGATIVE Urine Cocaine Screen NEGATIVE NEGATIVE Urine Cannabinoids Screen NEGATIVE NEGATIVE My Orders Orders - KAM SHI DO Ekg Tracing (02/10/22:22) Ed Iv/Invasive Line Start (02/10/22 21:27) O2 (02/10/22 21:27) Monitor-Rhythm Ecg Trace Only (02/10/22 21:27) Amylase (02/10/22 21:27) Bnp Yomi (02/10/22 21:27) Cbc With Automated Diff (02/10/22 21:) Comprehensive Metabolic Panel (02/10/22 21:27) Creatine Kinase (02/10/22 21:27) Creatine Kinase Mb (02/10/22 21:27) Hs C Reactive Protein (02/10/22 21:) Erythrocyte Sedimentation Rate (02/10/22 21:27) Drug Screen Stat (Urine) (02/10/22 21:27) Lipase (02/10/22 21:27) Magnesium (02/10/22 21:27) Protime With Inr (02/10/22 21:) Partial Thromboplastin Time (02/10/22 21:27) Ua Culture If Indicated (02/10/22 21:27) Myoglobin Serum (02/10/22 21:27) Troponin I Yomi (02/10/22 21:27) Chest 1 View, Ap/Pa Only (02/10/22 21:27) Nitroglycerin 0.4 Mg Btl 25's (Nitrostat (02/10/22 21:30) Aspirin Chewable Tablet (Baby Aspirin Ch (02/10/22 21:30) Ketorolac Injection (Toradol Injection) (02/10/22 22:15) Troponin I Yomi (02/10/22 23:44) Ekg Tracing (02/10/22 23:44) Medications Given in ED Current Medications Medications Dose Ordered Sig/Valentina Route Start Time Stop Time Status Last Admin Dose Admin Aspirin 324 mg ONCE ONCE PO 02/10/22 21:30 02/10/22 21:32 DC 02/10/22 21:35 324 MG Ketorolac Tromethamine 30 mg ONCE ONCE IVP 02/10/22 22:15 02/10/22 22:16 DC 02/10/22 22:24 30 MG Nitroglycerin 0.4 mg UD PRN SL 02/10/22 21:30 02/11/22 01:13 DC 02/10/22 21:34 0.4 MG Vital Signs/I&O 02/10/22 21:21 Temp 37.1 Pulse 53 Resp 12 B/P (MAP) 128/81 (97) Pulse Ox 98 O2 Delivery Room Air Departure Impression Primary Impression: Chest pain Disposition: HOME, SELF-CARE Condition: Improved Departure-Patient Inst. Decision time for Depature: 00:57 Referrals: JESSE TOLEDO MD FACP FACC CCDS RAVINDRA PERRIN MD (PCP/Family) Primary Care Physician Patient Instructions: Chest Pain (DC) Add. Discharge Instructions: CONTINUE YOUR CURRENT MEDICATIONS PRESCRIBED KEEP YOUR APPOINTMENT WITH DR. TOLEDO THIS WEEK All discharge instructions reviewed with patient and/or family. Voiced understanding. AKM SHI DO Feb 11, 2022 00:58
[2022-02-11 01:10] VITALS: BP 111/79
== END 2022-02-11 01:13 | disposition home or self-care (01) ==
LOC: EDUNIT# 21:10 → ER 21:13
DX: R07.89 Other chest pain (principal); Z28.310 Unvaccinated for COVID-19
CPT/HCPCS: 36415; 71045; 80053; 80306; 81000; 82150; 82550; 82553; 83690; 83735; 83874; 83880; 84484; 85025; 85610; 85652; 85730; 86141; 93005; 93041

== ENCOUNTER 2023-02-06 17:23 | Emergency (ER) | payer BC, OTHER ==
[~2023-02-06] VITALS: Ht 183 cm; Wt 83.0 kg
[2023-02-06 17:33] VITALS: BP 145/93
--- NOTE | 2023-02-06 18:07 | ED Abdominal Pain ---
General Chief Complaint: Abdominal/GI Problems Stated Complaint: HERNIA Nursing Triage Note: PT STATES HE THINKS HE HAS A HERNIA, PAIN FOR THE LAST MONTH, WORSE LATELY, LLQ, NORMAL BM YESTERDAY, DENIES URINARY ISSUES Source of Information: Patient Exam Limitations: No Limitations History of Present Illness Date Seen by Provider: Feb 06, 2023 Time Seen by Provider: 18:07 Initial Comments Patient is a 37-year-old male who presents to the emergency room with his chief complaint of left groin pain, concern for hernia. Patient states he has had progressive discomfort over the last month. He states it is worse with heavy lifting. The family is moving today and he became nauseated. He states he is having a difficult time occasionally having bowel movements. Denies any fevers or chills. Nausea without vomiting. No problems with urination. The pain does not radiate. He points to just above the left inguinal canal. He has never had an abdominal surgery before. He has seen Dr. PERRIN at [facility] in the past. Timing/Duration: Other (1 month) Severity/Quality: Moderate Location: LLQ (Left groin) Radiation: No Radiation Activities at Onset: Other (Heavy lifting) Modifying Factors: Worsens With Exercise; Improves With Lying down; Worsens With Movement Associated Symptoms: Nausea/Vomiting (Nausea without vomiting) Allergies and Home Medications Allergies Coded Allergies: Penicillins (Verified Allergy, Unknown, 01/08/19) Patient Home Medication List Home Medication List Reviewed: Yes Review of Systems Review of Systems Constitutional: see HPI Respiratory: No Symptoms Reported Cardiovascular: No Symptoms Reported Gastrointestinal: Abdominal Pain, Nausea Genitourinary: No Symptoms Reported Musculoskeletal: no symptoms reported Skin: no symptoms reported All Other Systems Reviewed Negative Unless Noted: Yes Past Erlllrg-Iqxdqa-Cawlwq Hx Patient Social History Tobacco Use?: Yes Tobacco type used: Cigarettes Smoking Status: Current Everyday Smoker Substance use?: No Alcohol Use?: No Immunizations Up To Date Tetanus Booster (TDap): Unknown PED Vaccines UTD: Yes First/Initial COVID19 Vaccinat: NONE Second COVID19 Vaccination Christian: NONE Third COVID19 Vaccination Date: NONE Seasonal Allergies Seasonal Allergies: No Past Medical History Surgery/Hospitalization HX: IRREGULAR HEART BEAT, HTN Surgeries: Yes (RIGHT ELBOW SURGERY) Orthopedic Respiratory: No Cardiac: Yes Hypertension Neurological: No Genitourinary: No Gastrointestinal: No Musculoskeletal: No Endocrine: No HEENT: No Cancer: No Psychosocial: Yes (POLYSUBSTANCE ABUSE) Sleep Difficulties, Anxiety, Depression Integumentary: No Family Medical History SOCIAL HISTORY: -SMOKES 1 PPD -ETOH--DAILY USE--BEER/HARD LIQUOR -DRUGS--DAILY METH, THC. DENIES IV USE STRESS TEST 12/22/[address] TOLEDO: CONCLUSIONS: 1. No evidence of significant myocardial ischemia or infarction on this study. 2. Normal regional wall motion. 3. Normal global left ventricular systolic function with a calculated ejection fraction of 58%. ECHOCARDIOGRAM 12/25/21--NORMAL. EF 60-65% HOLTER MONITOR--READ BY DR. TOLEDO 01/01/22--ESSENTIALLY NORMAL, WITH RARE PVC'S AND PAC'S, NO SIGNIFICANT BRADYCARDIA. NO VENTRICULAR ARRHYTHMIAS Physical Exam Vital Signs Vital Signs - First Documented 02/06/23 17:33 Temp 36.6 Pulse 51 Resp 18 B/P (MAP) 145/93 (110) Pulse Ox 99 O2 Delivery Room Air Capillary Refill : Less Than 3 Seconds Height/Weight/BMI Height: 6'0" Weight: 183lbs. oz. 83.559989oc; 24.00 BMI Method:Stated General Appearance: WD/WN, no apparent distress HEENT: PERRL/EOMI Respiratory: lungs clear, normal breath sounds, no respiratory distress, no accessory muscle use Cardiovascular: regular rate, rhythm Gastrointestinal: soft, tenderness (Mild tenderness just above the left inguinal canal. No palpable defect. No bulges appreciated. Scrotal exam reveals no obvious hernia.) Genital/Rectal: normal genital exam Extremities: normal range of motion, normal inspection Male: normal genitalia Neurologic/Psychiatric: alert, normal mood/affect, oriented x 3 Skin: normal color, warm/dry Progress/Results/Core Measures Results/Orders Vital Signs/I&O 02/06/23 17:33 Temp 36.6 Pulse 51 Resp 18 B/P (MAP) 145/93 (110) Pulse Ox 99 O2 Delivery Room Air Blood Pressure Mean: 110 Departure Impression Primary Impression: Left groin pain Disposition: 01 HOME, SELF-CARE Condition: Stable Departure-Patient Inst. Decision time for Depature: 18:18 Referrals: RAVINDRA PERRIN MD (PCP/Family) Primary Care Physician Patient Instructions: Groin hernias Add. Discharge Instructions: Wear snug fitting underwear for support. Avoid heavy lifting greater than 20 pounds. We have given you an order for an outpatient ultrasound, please contact scheduling [phone] for this appointment in the next couple of days. I have given you contact information for Dr. Vasquez, general surgery who repairs hernias. You can take cfqp-[id number]-coowqda ibuprofen 3 tablets which is 600 mg every 6 hours with food as needed for pain. You can also alternate with extra strength Tyl enol. If you develop severe sudden increased pain with a persistent bulge in the groin, nausea vomiting or any other emergent, concerning symptoms please return to the emergency department for reevaluation. Work/School Note: Work Release Form Date Seen in the Emergency Department: Feb 06, 2023 Return to Work: Feb 07, 2023 Restrictions: No Heavy Lifting Greater than 20 pounds until cleared by surgeon Copy Copies To 1: HODAN MOTTA DO Copies To 2: KIA VASQUEZ DO ADI FELIZ MD Feb 06, 2023 18:07
== END 2023-02-06 18:27 | disposition home or self-care (01) ==
LOC: EDUNIT# 17:23 → ER 17:25
DX: R10.32 Left lower quadrant pain (principal); F17.210 Nicotine dependence, cigarettes, uncomplicated; Z28.310 Unvaccinated for COVID-19
CPT/HCPCS: 99281

== ENCOUNTER → 2023-02-11 | Outpatient (CLI) | payer BC ==
--- NOTE | 2023-02-11 15:02 | Diagnostic Imaging Report ---
INDICATION: Left groin pain. FINDINGS: Ultrasound of the left groin shows an inguinal hernia with incarcerated loop of bowel. IMPRESSION: Left inguinal hernia. Dictated by: Dictated on workstation # [id number]
== END ==
LOC: RAD 13:45
PROVIDERS: ATTEND Emergency Medicine
DX: K40.90 Unilateral inguinal hernia, without obstruction or gangrene, not specified as recurrent (principal)
CPT/HCPCS: 76881